=== PATIENT | female | born 1940 | race Caucasian/White ===

== ENCOUNTER 2023-10-16 07:07 | Day surgery (SDC) | payer MEDICARE, OTHER ==
[~2023-10-16] VITALS: Ht 157.5 cm; Wt 71.2 kg
[~2023-10-16 07:07] MED LIST: CEFAZOLIN SOD 2 GM in D5W 50 ML IV ONE; LR 1,000 ML IV ONE
[2023-10-16 08:27] VITALS: O2SAT 99
[2023-10-16] MEDS ORDERED: BUPIVACAINE LIPOSOME/PF 266 MG/20 ML VIAL INFIL ONE (08:49)
[2023-10-16] MEDS ORDERED: ROCURONIUM BROMIDE 10 MG/ML (ZEMURON) ONE (09:00)
[2023-10-16] MEDS ORDERED: ONDANSETRON HCL 4 MG/2 ML VIAL ONE (09:00)
[2023-10-16] MEDS ORDERED: NS IRRIG SOLN 1000 ML IR ONE (09:00)
[2023-10-16] MEDS ORDERED: GLYCOPYRROLATE 0.2 MG/ML VIAL ONE (09:00)
[2023-10-16] MEDS ORDERED: PROPOFOL 200MG/ 20ML VIAL (DIPRIVAN) IV ONE (09:00)
[2023-10-16] MEDS ORDERED: METOPROLOL TARTRATE 5 MG/5 ML VIAL ONE (09:00)
[2023-10-16] MEDS ORDERED: NEOSTIGMINE METHYLSULFATE 1 MG/ML, 10 ML VIAL ONE (09:00)
[2023-10-16] MEDS ORDERED: BUPIVACAINE /PF 0.25% 30 ML VIAL INJ ONE (09:00)
[2023-10-16] MEDS ORDERED: SUCCINYLCHOLINE CHLORIDE 20 MG/ML(QUELICIN) ONE (09:00)
[2023-10-16] MEDS ORDERED: ePHEDrine sulfate 50 MG/ML VIAL ONE (09:00)
[2023-10-16] MEDS ORDERED: NS 1000 ML IV.SOLN IV ONE (09:00)
[2023-10-16] MEDS ORDERED: SEVOFLURANE 15 MIN GAS INH ONE (09:00)
[2023-10-16] MEDS ORDERED: LR 1,000 ML IV.SOLN IV ONE (09:00)
[2023-10-16] MEDS ORDERED: DEXAMETHASONE SOD PHOSPHATE 4 MG/ML VIAL ONE (09:00)
[2023-10-16] MEDS ORDERED: HYDROmorphone 2 MG/ML VIAL ONE (09:04)
[2023-10-16] MEDS ORDERED: MORPHINE 4 MG INJ. 4 MG/ML VIAL IVP PRN ×2 (10:15)
[2023-10-16] MEDS ORDERED: HYDROmorphone 1 MG/ML INJ. CARTRIDGE IVP PRN (10:15)
[2023-10-16] MEDS ORDERED: METOCLOPRAMIDE HCL 10 MG/2 ML VIAL IVP PRN (10:15)
[2023-10-16] MEDS ORDERED: ePHEDrine sulfate 50 MG/ML VIAL IVP PRN (10:15)
[2023-10-16] MEDS ORDERED: ONDANSETRON HCL 4 MG/2 ML VIAL IVP PRN (10:15)
[2023-10-16] MEDS ORDERED: dilTIAZem HCL IVP 5 MG/ML VIAL IVP PRN (10:15)
[2023-10-16 14:16] VITALS: BP_SYST 137; PULSE 87; RESP 18; TEMP 96.6
== END 2023-10-16 14:10 | disposition home or self-care (01) ==
LOC: SDS 07:07 → SMU 07:08 → EDSTATUS 09:00 → SDS 14:10
PROVIDERS: ATTEND Surgery
DX: K40.30 Unilateral inguinal hernia, with obstruction, without gangrene, not specified as recurrent (principal); R10.2 Pelvic and perineal pain; I25.10 Atherosclerotic heart disease of native coronary artery without angina pectoris; I48.91 Unspecified atrial fibrillation; I12.9 Hypertensive chronic kidney disease with stage 1 through stage 4 chronic kidney disease, or unspecified chronic kidney disease; E11.22 Type 2 diabetes mellitus with diabetic chronic kidney disease; N18.32 Chronic kidney disease, stage 3b; F32.9 Major depressive disorder, single episode, unspecified; E78.5 Hyperlipidemia, unspecified; D69.2 Other nonthrombocytopenic purpura; E11.36 Type 2 diabetes mellitus with diabetic cataract; E11.51 Type 2 diabetes mellitus with diabetic peripheral angiopathy without gangrene; I70.0 Atherosclerosis of aorta; D68.69 Other thrombophilia; Z79.899 Other long term (current) drug therapy
CPT/HCPCS: 87081; 49507; 82948; 88302; 88305; C9290; J3490 ×2; J0690; J1100; J2405; J2704; J0330; J1170; J7060; J7120; J7030; C1781; J2710